=== PATIENT | female | born 1985 | race Caucasian/White ===

== ENCOUNTER 2017-03-20 10:15 | Emergency (ER) | payer BC ==
[~2017-03-20] VITALS: Ht 162.6 cm; Wt 104.8 kg
[2017-03-20] MEDS ORDERED: LIDOCAINE 2%, 20ML SQ ONE (11:00)
[2017-03-20] MEDS ORDERED: LIDOCAINE 1%, 20ML ONE (11:47)
[2017-03-20 13:21] VITALS: BP 117/74
== END 2017-03-20 13:23 | disposition home or self-care (01) ==
LOC: ED 13:17
DX: S06.0X1A Concussion with loss of consciousness of 30 minutes or less, initial encounter (principal); S01.01XA Laceration without foreign body of scalp, initial encounter; W19.XXXA Unspecified fall, initial encounter; Y93.89 Activity, other specified; Y99.9 Unspecified external cause status; Y92.009 Unspecified place in unspecified non-institutional (private) residence as the place of occurrence of the external cause
CPT/HCPCS: 12001; 70450; 72125; 93005

== ENCOUNTER 2017-03-27 18:36 | Emergency (ER) | payer BC ==
[~2017-03-27] VITALS: Ht 162.6 cm; Wt 107.0 kg
[2017-03-27 18:36] VITALS: BP 151/104
== END 2017-03-27 19:28 | disposition home or self-care (01) ==
LOC: ED 19:22
DX: Z48.02 Encounter for removal of sutures (principal); F90.9 Attention-deficit hyperactivity disorder, unspecified type
CPT/HCPCS: 99281

== ENCOUNTER 2017-05-25 20:56 | Emergency (ER) | payer BC ==
[~2017-05-25] VITALS: Ht 162.6 cm; Wt 108.0 kg
[2017-05-25] MEDS ORDERED: DIPHENHYDRAMINE 50 MG/ML, 1ML IVPush ONE (21:30)
[2017-05-25] MEDS ORDERED: SODIUM CHLORIDE 0.9% 1,000ML IVBOLUS ONE (21:30)
[2017-05-25] MEDS ORDERED: METOCLOPRAMIDE 5 MG/ML, 2ML IVPush ONE (21:30)
[2017-05-25] MEDS ORDERED: METOCLOPRAMIDE 5 MG/ML, 2ML ONE (21:43)
[2017-05-25] MEDS ORDERED: DIPHENHYDRAMINE 50 MG/ML, 1ML ONE (21:43)
[2017-05-25 22:41] LABS: ASPARTATE AMINO TRANSFERASE 7 U/L (15-37); BLOOD UREA NITROGEN 12 mg/dL (7-18)
[2017-05-26 00:29] LABS: PATH.CAST-FLAG NOT PRESENT; SPERM-FLAG NOT PRESENT; SRC-FLAG NOT PRESENT; XTAL-FLAG NOT PRESENT; YLC-FLAG NOT PRESENT
[2017-05-26] MEDS ORDERED: AMPH20CA7 PO (00:44)
[2017-05-26 01:19] VITALS: BP 123/74
== END 2017-05-26 01:29 | disposition home or self-care (01) ==
LOC: ED 22:18
DX: O23.11 Infections of bladder in pregnancy, first trimester (principal); O21.1 Hyperemesis gravidarum with metabolic disturbance; O26.891 Other specified pregnancy related conditions, first trimester; O21.9 Vomiting of pregnancy, unspecified; R11.0 Nausea; F90.9 Attention-deficit hyperactivity disorder, unspecified type; Z88.0 Allergy status to penicillin; Z90.49 Acquired absence of other specified parts of digestive tract; Z3A.01 Less than 8 weeks gestation of pregnancy
CPT/HCPCS: 36415; 76801; 80053; 81001; 83690; 84702; 85025; 87086; 96361; 96374; 96375; 99285; J1200; J2765; J7030

== ENCOUNTER 2017-06-05 12:56 | Emergency (ER) | payer BC ==
[~2017-06-05] VITALS: Ht 162.6 cm; Wt 109.3 kg
[~2017-06-05 12:56] MED LIST: AMPH20CA7 PO
[2017-06-05] MEDS ORDERED: ONDANSETRON 2MG/ML, 2ML IVPush ONE (14:00)
[2017-06-05] MEDS ORDERED: SODIUM CHLORIDE FLUSH 10ML SYR IVF ONE (14:00)
[2017-06-05] MEDS ORDERED: SODIUM CHLORIDE 0.9% 1,000ML IVBOLUS ONE (14:00)
[2017-06-05] MEDS ORDERED: ONDANSETRON 2MG/ML, 2ML ONE (14:04)
[2017-06-05 14:22] LABS: BLOOD UREA NITROGEN 12 mg/dL (7-18)
[2017-06-05 14:47] VITALS: BP 135/79
== END 2017-06-05 15:42 | disposition home or self-care (01) ==
LOC: ED 15:00
DX: O21.0 Mild hyperemesis gravidarum (principal); O26.891 Other specified pregnancy related conditions, first trimester; F90.9 Attention-deficit hyperactivity disorder, unspecified type; R11.0 Nausea; Z3A.09 9 weeks gestation of pregnancy
CPT/HCPCS: 36415; 80048; 82040; 84702; 85025; 96361; 96374; 99284; J2405; J7030

== ENCOUNTER 2017-07-08 16:16 | Emergency (ER) | payer BC ==
[~2017-07-08] VITALS: Ht 162.6 cm; Wt 114.1 kg
[2017-07-08] MEDS ORDERED: ONDANSETRON 2MG/ML, 2ML ONE (16:54)
[2017-07-08 16:56] LABS: HEMATOCRIT 39.9 % (34.6-47.8); HEMOGLOBIN 13.1 g/dL (11.7-16.4); WHITE BLOOD COUNT 10.2 x10^3/uL (3.4-10)
[2017-07-08] MEDS ORDERED: SODIUM CHLORIDE FLUSH 10ML SYR IVF ONE (17:00)
[2017-07-08] MEDS ORDERED: ONDANSETRON 2MG/ML, 2ML IVPush ONE (17:00)
[2017-07-08] MEDS ORDERED: DIPHENHYDRAMINE 50 MG/ML, 1ML IVPush ONE (17:00)
[2017-07-08] MEDS ORDERED: SODIUM CHLORIDE 0.9% 1,000ML IVBOLUS ONE (17:00)
[2017-07-08] MEDS ORDERED: DIPHENHYDRAMINE 50 MG/ML, 1ML ONE (17:04)
[2017-07-08 17:06] LABS: BLOOD UREA NITROGEN 10 mg/dL (7-18)
[2017-07-08 19:00] VITALS: BP 131/77
== END 2017-07-08 19:08 | disposition home or self-care (01) ==
LOC: ED 18:32
DX: O21.0 Mild hyperemesis gravidarum (principal); Z3A.13 13 weeks gestation of pregnancy; F90.9 Attention-deficit hyperactivity disorder, unspecified type
CPT/HCPCS: 36415; 80048; 81003; 82040; 85025; 96361; 96374; 96375; 99285; J1200; J2405; J7030

== ENCOUNTER 2017-08-12 20:01 | Emergency (ER) | payer BC ==
[~2017-08-12] VITALS: Ht 162.6 cm; Wt 118.7 kg
[2017-08-12 23:12] VITALS: BP 110/68
== END 2017-08-12 23:14 | disposition home or self-care (01) ==
LOC: ED 21:56
DX: O9A.212 Injury, poisoning and certain other consequences of external causes complicating pregnancy, second trimester (principal); S16.1XXA Strain of muscle, fascia and tendon at neck level, initial encounter; O30.002 Twin pregnancy, unspecified number of placenta and unspecified number of amniotic sacs, second trimester; Z3A.18 18 weeks gestation of pregnancy; X58.XXXA Exposure to other specified factors, initial encounter; Y93.89 Activity, other specified; Y92.89 Other specified places as the place of occurrence of the external cause; Y99.8 Other external cause status
CPT/HCPCS: 72020; 72050; 76805; 99284

== ENCOUNTER 2017-08-16 17:30 | Emergency (ER) | payer BC ==
[~2017-08-16] VITALS: Ht 162.6 cm; Wt 119.4 kg
[2017-08-16] MEDS ORDERED: ACETAMINOPHEN 325 MG TABLET ONE (18:11)
[2017-08-16 18:19] LABS: PATH.CAST-FLAG NOT PRESENT; SPERM-FLAG NOT PRESENT; SRC-FLAG NOT PRESENT; XTAL-FLAG NOT PRESENT; YLC-FLAG NOT PRESENT
[2017-08-16 18:27] LABS: HEMATOCRIT 37.5 % (34.6-47.8); HEMOGLOBIN 12.4 g/dL (11.7-16.4); WHITE BLOOD COUNT 9.9 x10^3/uL (3.4-10)
[2017-08-16] MEDS ORDERED: ACETAMINOPHEN 325 MG TABLET PO ONE (18:30)
[2017-08-16 18:39] LABS: ASPARTATE AMINO TRANSFERASE 11 U/L (15-37); BLOOD UREA NITROGEN 10 mg/dL (7-18)
[2017-08-16 21:05] VITALS: BP 138/74
== END 2017-08-16 21:08 | disposition home or self-care (01) ==
LOC: ED 17:42
DX: O20.0 Threatened abortion (principal); Z3A.18 18 weeks gestation of pregnancy
CPT/HCPCS: 36415; 76805; 80053; 81001; 84702; 85025; 86901; 87086; 99285

== ENCOUNTER 2017-09-29 22:54 | Outpatient (CLI) | payer BC ==
[~2017-09-29] VITALS: Ht 162.6 cm; Wt 125.9 kg
[~2017-09-29 22:54] MED LIST changes: +ONDA4TAB7 PO; +PREN-59 PO
[2017-09-29 23:40] VITALS: BP 133/74
== END 2017-09-29 23:55 | disposition home or self-care (01) ==
LOC: LDOP 22:54
PROVIDERS: ATTEND Obstetrics & Gynecology Maternal & Fetal Medicine
DX: O30.042 Twin pregnancy, dichorionic/diamniotic, second trimester (principal); O62.9 Abnormality of forces of labor, unspecified; Z3A.25 25 weeks gestation of pregnancy
CPT/HCPCS: 59025; 99211; G0463

== ENCOUNTER 2017-10-03 06:26 | Outpatient (CLI) | payer BC ==
[~2017-10-03] VITALS: Ht 162.6 cm; Wt 126.0 kg
== END 2017-10-03 09:20 | disposition home or self-care (01) ==
LOC: LDOP 06:26
PROVIDERS: ATTEND Obstetrics & Gynecology Maternal & Fetal Medicine
DX: O36.8120 Decreased fetal movements, second trimester, not applicable or unspecified (principal); O30.042 Twin pregnancy, dichorionic/diamniotic, second trimester; Z3A.25 25 weeks gestation of pregnancy
CPT/HCPCS: 59025; 76815; 99211; G0463

== ENCOUNTER 2017-10-05 08:37 | Outpatient (CLI) | payer BC ==
[~2017-10-05] VITALS: Ht 162.6 cm; Wt 125.9 kg
[2017-10-05 08:48] VITALS: BP 136/72
== END 2017-10-05 09:45 | disposition home or self-care (01) ==
LOC: LDOP 08:37
PROVIDERS: ATTEND Obstetrics & Gynecology Maternal & Fetal Medicine
DX: O24.410 Gestational diabetes mellitus in pregnancy, diet controlled (principal); O30.042 Twin pregnancy, dichorionic/diamniotic, second trimester; O99.212 Obesity complicating pregnancy, second trimester; Z3A.26 26 weeks gestation of pregnancy
CPT/HCPCS: 59025; 99201; G0463

== ENCOUNTER 2017-10-15 15:27 | Outpatient (CLI) | payer BC ==
[~2017-10-15] VITALS: Ht 162.6 cm; Wt 125.9 kg
[2017-10-15 16:00] VITALS: BP 120/56
[2017-10-15] MEDS ORDERED: INSU500V SC ×2 (16:50→16:54)
[2017-10-15] MEDS ORDERED: insulin nph SC ×2 (16:52→16:54)
== END 2017-10-15 17:08 | disposition home or self-care (01) ==
LOC: LDOP 15:27
PROVIDERS: ATTEND Obstetrics & Gynecology Maternal & Fetal Medicine
DX: O26.892 Other specified pregnancy related conditions, second trimester (principal); O30.042 Twin pregnancy, dichorionic/diamniotic, second trimester; O99.332 Smoking (tobacco) complicating pregnancy, second trimester; O99.212 Obesity complicating pregnancy, second trimester; F17.200 Nicotine dependence, unspecified, uncomplicated; R10.9 Unspecified abdominal pain; Z3A.27 27 weeks gestation of pregnancy
CPT/HCPCS: 59025; 99211; G0463

== ENCOUNTER 2017-11-09 20:19 | Outpatient (CLI) | payer BC ==
[~2017-11-09] VITALS: Ht 162.6 cm; Wt 190.0 kg
[~2017-11-09 20:19] MED LIST changes: +INSU500V SC; +insulin nph SC
[2017-11-09 20:46] VITALS: BP 124/58
[2017-11-09 21:09] LABS: MICROSCOPIC INDICATED
== END 2017-11-09 22:20 | disposition home or self-care (01) ==
LOC: LDOP 20:19
PROVIDERS: ATTEND Obstetrics & Gynecology Maternal & Fetal Medicine
DX: O36.8130 Decreased fetal movements, third trimester, not applicable or unspecified (principal); O62.9 Abnormality of forces of labor, unspecified; O30.003 Twin pregnancy, unspecified number of placenta and unspecified number of amniotic sacs, third trimester; Z3A.31 31 weeks gestation of pregnancy
CPT/HCPCS: 36415; 59025; 81001; 82731; 87086; 99211; G0463

== ENCOUNTER 2017-11-16 22:58 | Outpatient (CLI) | payer MEDICAID ==
[2017-11-17 00:27] LABS: MICROSCOPIC NOT IND
[2017-11-17 00:31] LABS: WET PREP WBCS MODERATE (FEW)
[2017-11-17 00:54] LABS: CLUE CELLS NONE SEEN (NONE SEEN)
== END 2017-11-17 01:15 | disposition home or self-care (01) ==
LOC: LDOP 22:58
PROVIDERS: ATTEND Obstetrics & Gynecology Maternal & Fetal Medicine
DX: O24.419 Gestational diabetes mellitus in pregnancy, unspecified control (principal); O26.893 Other specified pregnancy related conditions, third trimester; R10.9 Unspecified abdominal pain; O62.9 Abnormality of forces of labor, unspecified; Z3A.31 31 weeks gestation of pregnancy
CPT/HCPCS: 59025; 81003; 87210; 87808; 99211; G0463

== ENCOUNTER 2017-11-26 12:33 | Inpatient (IN) | payer MEDICAID ==
[~2017-11-26] VITALS: Ht 162.6 cm; Wt 138.7 kg
[2017-11-26 12:59] VITALS: BP 134/69
[2017-11-26 13:14] LABS: BASOPHILS # (AUTO) 0.03 x10^3/uL (0-0.1); BASOPHILS % (AUTO) 0 % (0-1); EOSINOPHILS # (AUTO) 0.07 x10^3/uL (0-0.4); EOSINOPHILS % (AUTO) 1 % (1-7); LYMPHOCYTES # (AUTO) 1.05 x10^3/uL (1-3.4); LYMPHOCYTES % (AUTO) 15 % (22-44); MD NO; MEAN CORPUSCULAR HEMOGLOBIN 27.7 pg (27.0-34.8); MEAN CORPUSCULAR HGB CONC 33.1 g/dL (32.4-35.8); MEAN CORPUSCULAR VOLUME 83.5 fL (80-100); MEAN PLATELET VOLUME 7.2 fL (7.4-10.4); MONOCYTES # (AUTO) 0.46 x10^3/uL (0.2-0.8); MONOCYTES % (AUTO) 7 % (2-9); NEUTROPHILS # (AUTO) 5.34 x10^3/uL (1.8-6.8); NEUTROPHILS % (AUTO) 77 % (42-75); PLATELET COUNT 279 x10^3/uL (130-400); RED BLOOD COUNT 4.16 x10^6/uL (3.82-5.3); RED CELL DISTRIBUTION WIDTH 14.9 % (9.6-15.2)
[2017-11-26 13:23] LABS: ALANINE AMINOTRANSFERASE 17 U/L (12-78); ALBUMIN 2.4 g/dL (3.4-5.0); ANION GAP 11 mmol/L (5-15); CALCIUM 8.7 mg/dL (8.5-10.1); CHLORIDE 106 mmol/L (98-107); CREATININE 0.55 mg/dL (0.55-1.02)
[2017-11-26 13:25] LABS: ALKALINE PHOSPHATASE 84 U/L (45-117); BILIRUBIN,TOTAL 0.4 mg/dL (0.2-1.0); TOTAL PROTEIN 6.4 g/dL (6.4-8.2)
[2017-11-26 13:33] LABS: MICROSCOPIC INDICATED
[2017-11-26 13:39] LABS: CREATININE,URINE RANDOM 97.9 mg/dL
[2017-11-26] MEDS: ACETAMINOPHEN 500 MG TABLET PO PRN (20:52)
[2017-11-26] MEDS ORDERED: CALCIUM CARBONATE 500 MG TAB.CHEW ONE (21:08)
[2017-11-26] MEDS: CALCIUM CARBONATE 500 MG TAB.CHEW PO PRN (21:10)
[2017-11-26] MEDS: INSULIN NPH HUMAN 100 UNIT/ML, 3ML VIAL SQ-INSULIN SCH (21:12)
[2017-11-27] MEDS: ACETAMINOPHEN 500 MG TABLET PO PRN ×2 (02:40→22:28)
[2017-11-27] MEDS ORDERED: OXYcodone IR 5MG TABLET PO PRN (04:00)
[2017-11-27] MEDS ORDERED: OXYcodone IR 5MG TABLET ONE ×2 (04:00→13:57)
[2017-11-27] MEDS ORDERED: CALCIUM CARBONATE 500 MG TAB.CHEW ONE (06:54)
[2017-11-27] MEDS: CALCIUM CARBONATE 500 MG TAB.CHEW PO PRN (06:56)
[2017-11-27] MEDS ORDERED: ONDANSETRON ODT 4 MG ONE (09:43)
[2017-11-27] MEDS ORDERED: ONDANSETRON 4 MG TABLET PO PRN (10:00)
[2017-11-27] MEDS ORDERED: ACETAMINOPHEN 500 MG TABLET ONE ×3 (13:50→22:26)
[2017-11-27] MEDS: OXYcodone IR 5MG TABLET PO PRN (13:59)
[2017-11-27] MEDS: INSULIN NPH HUMAN 100 UNIT/ML, 3ML VIAL SQ-INSULIN SCH (22:10)
[2017-11-28] MEDS ORDERED: OXYcodone IR 5MG TABLET ONE ×2 (02:43→02:45)
[2017-11-28] MEDS: OXYcodone IR 5MG TABLET PO PRN (02:46)
[2017-11-28] MEDS ORDERED: ONDANSETRON ODT 4 MG ONE (04:15)
[2017-11-28] MEDS: ONDANSETRON 4 MG TABLET PO PRN (04:17)
[2017-11-28] MEDS: INSULIN NPH HUMAN 100 UNIT/ML, 3ML VIAL SQ-INSULIN SCH ×2 (07:42→22:04)
[2017-11-28] MEDS: INSULIN REGULAR 100 UNITS/ML, 3ML VIAL SQ-INSULIN SCH ×3 (07:44→17:11)
[2017-11-28] MEDS ORDERED: DOCUSATE 100 MG CAPSULE ONE ×2 (08:49→21:02)
[2017-11-28] MEDS: DOCUSATE 100 MG CAPSULE PO SCH ×2 (08:51→21:04)
[2017-11-28] MEDS ORDERED: PRENATAL VIT/IRON/FA 1 EACH TABLET PO SCH (09:00)
[2017-11-28] MEDS: PRENATAL VIT/IRON/FA 1 EACH TABLET HOMEMEDPO SCH (09:00)
[2017-11-28] MEDS ORDERED: ACETAMINOPHEN 500 MG TABLET ONE ×2 (12:05→20:50)
[2017-11-28] MEDS: ACETAMINOPHEN 500 MG TABLET PO PRN ×2 (12:08→20:52)
[2017-11-28 19:25] VITALS: BP 141/73
[2017-11-28 22:09] VITALS: BP 146/75
[2017-11-28] MEDS ORDERED: DIPHENHYDRAMINE 25 MG CAPSULE ONE (23:58)
[2017-11-29] MEDS ORDERED: DIPHENHYDRAMINE 50 MG CAPSULE PO PRN
[2017-11-29 01:25] VITALS: BP 148/75
[2017-11-29] MEDS ORDERED: ACETAMINOPHEN 500 MG TABLET ONE ×3 (04:59→21:04)
[2017-11-29] MEDS: ACETAMINOPHEN 500 MG TABLET PO PRN ×3 (05:00→21:05)
[2017-11-29 06:00] VITALS: BP 151/76
[2017-11-29] MEDS ORDERED: PRENATAL VIT/IRON/FA 1 EACH TABLET ONE (07:14)
[2017-11-29] MEDS ORDERED: DOCUSATE 100 MG CAPSULE ONE (07:15)
[2017-11-29] MEDS: INSULIN NPH HUMAN 100 UNIT/ML, 3ML VIAL SQ-INSULIN SCH ×2 (07:41→21:00)
[2017-11-29] MEDS: INSULIN REGULAR 100 UNITS/ML, 3ML VIAL SQ-INSULIN SCH ×3 (07:42→17:05)
[2017-11-29] MEDS: DOCUSATE 100 MG CAPSULE PO SCH ×2 (07:45→20:58)
[2017-11-29] MEDS: PRENATAL VIT/IRON/FA 1 EACH TABLET HOMEMEDPO SCH (07:48)
[2017-11-29 07:49] VITALS: BP 136/83
[2017-11-29] MEDS ORDERED: BETAMETHASONE 6 MG/ML, 5ML IM ONE (18:26)
[2017-11-29] MEDS: BETAMETHASONE 6 MG/ML, 5ML IM SCH (18:40)
[2017-11-29] MEDS ORDERED: CALCIUM CARBONATE 500 MG TAB.CHEW ONE (22:48)
[2017-11-29] MEDS: CALCIUM CARBONATE 500 MG TAB.CHEW PO PRN (22:50)
[2017-11-30] MEDS ORDERED: ONDANSETRON 4 MG TABLET ONE (00:50)
[2017-11-30] MEDS ORDERED: ONDANSETRON ODT 4 MG ONE (00:51)
[2017-11-30] MEDS: ONDANSETRON 4 MG TABLET PO PRN (00:52)
[2017-11-30] MEDS ORDERED: FAMOTIDINE 20 MG TABLET ONE ×2 (01:00→21:52)
[2017-11-30] MEDS: FAMOTIDINE 20 MG TABLET PO PRN ×2 (01:03→21:54)
[2017-11-30 01:16] LABS: BASOPHILS % (AUTO) 0 % (0-1); EOSINOPHILS # (AUTO) 0.01 x10^3/uL (0-0.4); EOSINOPHILS % (AUTO) 0 % (1-7); LYMPHOCYTES # (AUTO) 0.65 x10^3/uL (1-3.4); LYMPHOCYTES % (AUTO) 9 % (22-44); MD NO; MEAN CORPUSCULAR HEMOGLOBIN 27.4 pg (27.0-34.8); MEAN CORPUSCULAR HGB CONC 32.6 g/dL (32.4-35.8); MEAN CORPUSCULAR VOLUME 83.9 fL (80-100); MEAN PLATELET VOLUME 7.5 fL (7.4-10.4); MONOCYTES # (AUTO) 0.12 x10^3/uL (0.2-0.8); MONOCYTES % (AUTO) 2 % (2-9); NEUTROPHILS # (AUTO) 6.86 x10^3/uL (1.8-6.8); NEUTROPHILS % (AUTO) 90 % (42-75); PLATELET COUNT 315 x10^3/uL (130-400); RED BLOOD COUNT 4.22 x10^6/uL (3.82-5.3); RED CELL DISTRIBUTION WIDTH 14.9 % (9.6-15.2)
[2017-11-30 01:21] LABS: ALANINE AMINOTRANSFERASE 17 U/L (12-78); ALBUMIN 2.4 g/dL (3.4-5.0); ANION GAP 9 mmol/L (5-15); CALCIUM 9.4 mg/dL (8.5-10.1); CHLORIDE 108 mmol/L (98-107)
[2017-11-30 01:22] LABS: BILIRUBIN, DIRECT < 0.1 mg/dL (0.1-0.2)
[2017-11-30 01:23] LABS: ALKALINE PHOSPHATASE 86 U/L (45-117); BILIRUBIN,TOTAL 0.3 mg/dL (0.2-1.0); CREATININE 0.66 mg/dL (0.55-1.02); TOTAL PROTEIN 6.6 g/dL (6.4-8.2)
[2017-11-30] MEDS ORDERED: INSULIN NPH HUMAN 100 UNIT/ML, 3ML VIAL SQ-INSULIN SCH ×2 (07:30→21:00)
[2017-11-30] MEDS ORDERED: INSULIN REGULAR 100 UNITS/ML, 3ML VIAL SQ-INSULIN SCH (07:30)
[2017-11-30] MEDS: DOCUSATE 100 MG CAPSULE PO SCH ×2 (09:00→13:04)
[2017-11-30] MEDS: INSULIN REGULAR 100 UNITS/ML, 3ML VIAL SQ-INSULIN SCH (11:55)
[2017-11-30] MEDS ORDERED: ACETAMINOPHEN 325 MG TABLET ONE (12:53)
[2017-11-30] MEDS ORDERED: DOCUSATE 100 MG CAPSULE ONE ×2 (12:54→20:52)
[2017-11-30] MEDS ORDERED: ACETAMINOPHEN 500 MG TABLET ONE ×2 (13:00→19:21)
[2017-11-30] MEDS: ACETAMINOPHEN 500 MG TABLET PO PRN ×2 (13:04→19:23)
[2017-11-30 17:43] LABS: BASOPHILS % (AUTO) 0 % (0-1); EOSINOPHILS % (AUTO) 0 % (1-7); LYMPHOCYTES % (AUTO) 10 % (22-44); MD NO; MEAN CORPUSCULAR HEMOGLOBIN 27.7 pg (27.0-34.8); MEAN CORPUSCULAR HGB CONC 33.1 g/dL (32.4-35.8); MEAN CORPUSCULAR VOLUME 83.8 fL (80-100); MEAN PLATELET VOLUME 7.2 fL (7.4-10.4); MONOCYTES # (AUTO) 0.63 x10^3/uL (0.2-0.8); MONOCYTES % (AUTO) 6 % (2-9); NEUTROPHILS # (AUTO) 8.65 x10^3/uL (1.8-6.8); NEUTROPHILS % (AUTO) 84 % (42-75); PLATELET COUNT 339 x10^3/uL (130-400); RED BLOOD COUNT 4.08 x10^6/uL (3.82-5.3); RED CELL DISTRIBUTION WIDTH 15.1 % (9.6-15.2)
[2017-11-30 17:45] LABS: ALANINE AMINOTRANSFERASE 13 U/L (12-78); ALBUMIN 2.4 g/dL (3.4-5.0); ANION GAP 12 mmol/L (5-15); BILIRUBIN, DIRECT < 0.1 mg/dL (0.1-0.2); CALCIUM 8.8 mg/dL (8.5-10.1); CHLORIDE 107 mmol/L (98-107)
[2017-11-30 17:47] LABS: ALKALINE PHOSPHATASE 80 U/L (45-117); BILIRUBIN,TOTAL 0.4 mg/dL (0.2-1.0); TOTAL PROTEIN 6.5 g/dL (6.4-8.2)
[2017-11-30] MEDS: BETAMETHASONE 6 MG/ML, 5ML IM SCH (18:31)
[2017-11-30] MEDS ORDERED: INSULIN REGULAR 100 UNITS/ML, 3ML VIAL SQ-INSULIN ONE (19:00)
[2017-11-30 19:16] LABS: MICROSCOPIC AUTO
[2017-11-30] MEDS ORDERED: INSULIN NPH HUMAN 100 UNIT/ML, 3ML VIAL SQ-INSULIN ONE (21:00)
[2017-12-01] VITALS (7 sets, daily range): BP systolic 116–146; BP diastolic 56–92
[2017-12-01] MEDS ORDERED: METOCLOPRAMIDE 5 MG/ML, 2ML ONE ×2 (01:24→01:42)
[2017-12-01] MEDS ORDERED: SODIUM CITRATE/CITRIC ACID 30 ML UDC ONE ×2 (01:24→01:42)
[2017-12-01] MEDS ORDERED: NEWBORN KIT ONE (01:28)
[2017-12-01] MEDS ORDERED: KETOROLAC 30 MG/1 ML ONE ×3 (01:42→07:48)
[2017-12-01] MEDS ORDERED: OXYTOCIN 10 UNITS/ML, 1ML ONE ×2 (01:42→01:44)
[2017-12-01] MEDS ORDERED: CEFAZOLIN 1,000 MG ONE ×2 (01:42→01:44)
[2017-12-01] MEDS ORDERED: DEXAMETHASONE 4 MG/ML, 1ML ONE ×2 (01:42→01:44)
[2017-12-01] MEDS ORDERED: ONDANSETRON 2MG/ML, 2ML ONE ×2 (01:42→01:44)
[2017-12-01] MEDS ORDERED: EPHEDRINE 50 MG/ML, 1ML ONE (01:44)
[2017-12-01] MEDS ORDERED: PHENYLEPHRINE 10 MG/ML ONE (01:44)
[2017-12-01 01:45] LABS: O2 FLOW ROOM AIR L/min
[2017-12-01] MEDS: LACTATED RINGERS 1,000 ML IV SCH ×5 (01:45→21:45)
[2017-12-01] MEDS ORDERED: MISOPROSTOL 200 MCG TABLET PR PRN (02:00)
[2017-12-01] MEDS ORDERED: ACETAMINOPHEN 325 MG TABLET PO PRN ×2 (02:00)
[2017-12-01] MEDS ORDERED: ONDANSETRON 2MG/ML, 2ML IV PRN (02:00)
[2017-12-01] MEDS ORDERED: OXYcodone/APAP 5/325MG TABLET PO PRN (02:00)
[2017-12-01] MEDS ORDERED: CALCIUM CARBONATE 500 MG TAB.CHEW PO PRN (02:00)
[2017-12-01] MEDS ORDERED: morphine SULFATE 10 MG/ML, 1ML IVPush PRN ×2 (02:00)
[2017-12-01] MEDS ORDERED: MEASLES,MUMPS&RUBELLA VACC/PF 0.5 ML SQ-VACC PRN (02:00)
[2017-12-01] MEDS ORDERED: SIMETHICONE 80 MG CHEW TAB PO PRN (02:00)
[2017-12-01] MEDS ORDERED: DIPH,PERTUSS(ACELL),TET VAC/PF NC IM-VACC PRN (02:00)
[2017-12-01] MEDS ORDERED: OXYTOCIN 30U/ 0.9% NaCL 500ML 500 ML ONE (02:43)
[2017-12-01] MEDS ORDERED: FENTANYL PF 100 MCG/2ML ONE (02:50)
[2017-12-01] MEDS ORDERED: MAGNESIUM SULF. PMX 20GM/500ML 500 ML IV ONE (02:56)
[2017-12-01] MEDS ORDERED: LABETALOL 5MG/ML, 20ML IV PRN (03:30)
[2017-12-01] MEDS ORDERED: hydrALAzine 20 MG/ML, 1ML IV PRN (03:30)
[2017-12-01] MEDS ORDERED: EPHEDRINE 50 MG/ML, 1ML IVPush PRN (03:30)
[2017-12-01] MEDS ORDERED: MEPERIDINE/PF 25MG/0.5ML IVPush PRN (03:30)
[2017-12-01] MEDS ORDERED: ALBUTEROL SULFATE 2.5 MG/3 ML NPPB PRN (03:30)
[2017-12-01] MEDS ORDERED: PROMETHAZINE 25 MG/ML, 1ML IV PRN (03:30)
[2017-12-01] MEDS ORDERED: HYDROmorphone 1 MG/ML, 1ML IV PRN (03:30)
[2017-12-01] MEDS ORDERED: ONDANSETRON 2MG/ML, 2ML IVPush PRN (03:30)
[2017-12-01] MEDS ORDERED: FENTANYL PF 100 MCG/2ML IV PRN (03:30)
[2017-12-01] MEDS ORDERED: HYDROcodone/APAP 7.5-325MG/15ML UDC PO PRN (03:30)
[2017-12-01] MEDS ORDERED: OXYcodone 5 MG/5 ML ORAL.SOL UDC PO PRN (03:30)
[2017-12-01] MEDS ORDERED: MIDAZOLAM 1 MG/ML, 2ML IV PRN (03:30)
[2017-12-01] MEDS: OXYTOCIN 30U/ 0.9% NaCL 500ML 500 ML IV SCH ×3 (04:18→21:45)
[2017-12-01] MEDS ORDERED: METOCLOPRAMIDE 5 MG/ML, 2ML IVPush ONE (05:30)
[2017-12-01] MEDS ORDERED: SODIUM CITRATE/CITRIC ACID 30 ML UDC PO ONE (05:30)
[2017-12-01] MEDS ORDERED: INSULIN NPH HUMAN 100 UNIT/ML, 3ML VIAL SQ-INSULIN SCH (07:30)
[2017-12-01] MEDS ORDERED: HYDROcodone/APAP 7.5-325MG/15ML UDC ONE (07:34)
[2017-12-01] MEDS ORDERED: OXYcodone/APAP 10/325MG TABLET ONE (07:42)
[2017-12-01] MEDS: OXYcodone/APAP 5/325MG TABLET PO PRN ×3 (07:50→21:12)
[2017-12-01] MEDS: KETOROLAC 30 MG/1 ML IV SCH ×2 (07:51→14:29)
[2017-12-01 10:56] LABS: MEAN CORPUSCULAR HEMOGLOBIN 27.9 pg (27.0-34.8); MEAN CORPUSCULAR HGB CONC 33.1 g/dL (32.4-35.8); MEAN PLATELET VOLUME 7.2 fL (7.4-10.4); PLATELET COUNT 254 x10^3/uL (130-400); RED BLOOD COUNT 3.74 x10^6/uL (3.82-5.3); RED CELL DISTRIBUTION WIDTH 14.8 % (9.6-15.2)
[2017-12-01 11:19] LABS: BASOPHILS # (AUTO) 0.01 x10^3/uL (0-0.1); BASOPHILS % (AUTO) 0 % (0-1); EOSINOPHILS % (AUTO) 0 % (1-7); LYMPHOCYTES # (AUTO) 0.89 x10^3/uL (1-3.4); LYMPHOCYTES % (AUTO) 6 % (22-44); MD SCAN; MONOCYTES # (AUTO) 0.45 x10^3/uL (0.2-0.8); MONOCYTES % (AUTO) 3 % (2-9); NEUTROPHILS # (AUTO) 13.35 x10^3/uL (1.8-6.8); NEUTROPHILS % (AUTO) 91 % (42-75)
[2017-12-01] MEDS: PRENATAL VIT/IRON/FA 1 EACH TABLET PO SCH (11:25)
[2017-12-01] MEDS: MEPERIDINE/PF 50 MG/ML IM PRN ×2 (15:33→19:44)
[2017-12-01] MEDS ORDERED: INSULIN REGULAR 100 UNITS/ML, 3ML VIAL SQ-INSULIN SCH (16:30)
[2017-12-01] MEDS: DOCUSATE 100 MG CAPSULE PO PRN (21:12)
[2017-12-02] VITALS (8 sets, daily range): BP systolic 124–150; BP diastolic 66–88
[2017-12-02] MEDS: OXYcodone/APAP 5/325MG TABLET PO PRN ×4 (01:14→19:13)
[2017-12-02] MEDS: IBUPROFEN 600 MG TABLET PO PRN ×4 (02:33→22:10)
[2017-12-02] MEDS ORDERED: POLYETHYLENE GLYCOL 17 GM PACKET PO PRN (06:30)
[2017-12-02] MEDS: OXYTOCIN 30U/ 0.9% NaCL 500ML 500 ML IV SCH ×2 (07:45→17:45)
[2017-12-02] MEDS: LACTATED RINGERS 1,000 ML IV SCH ×2 (07:45→17:45)
[2017-12-02] MEDS: DOCUSATE 100 MG CAPSULE PO PRN ×2 (08:15→19:13)
[2017-12-02] MEDS: PRENATAL VIT/IRON/FA 1 EACH TABLET PO SCH (09:00)
[2017-12-02] MEDS: GUAIFENESIN/DM 200-20MG, 10ML UDC PO PRN (23:22)
[2017-12-03] VITALS: BP 125/78
[2017-12-03] MEDS: OXYcodone/APAP 5/325MG TABLET PO PRN ×5 (01:42→21:23)
[2017-12-03] MEDS: OXYTOCIN 30U/ 0.9% NaCL 500ML 500 ML IV SCH ×2 (03:45→22:25)
[2017-12-03] MEDS: LACTATED RINGERS 1,000 ML IV SCH ×2 (03:45→22:25)
[2017-12-03 04:05] VITALS: BP 112/69
[2017-12-03] MEDS: IBUPROFEN 600 MG TABLET PO PRN ×3 (04:05→17:29)
[2017-12-03 07:20] VITALS: BP 121/68
[2017-12-03] MEDS: PRENATAL VIT/IRON/FA 1 EACH TABLET PO SCH (09:00)
[2017-12-03] MEDS: DOCUSATE 100 MG CAPSULE PO PRN ×2 (10:27→21:23)
[2017-12-03 12:00] VITALS: BP 128/80
[2017-12-03 17:19] VITALS: BP 126/74
[2017-12-03 19:35] VITALS: BP 139/94
[2017-12-03] MEDS ORDERED: OXYcodone IR 5MG TABLET PO PRN ×2 (22:30)
[2017-12-03] MEDS: GUAIFENESIN/DM 200-20MG, 10ML UDC PO PRN (22:57)
[2017-12-04] MEDS: IBUPROFEN 600 MG TABLET PO PRN ×3 (00:08→19:30)
[2017-12-04 00:11] VITALS: BP 139/86
[2017-12-04 04:45] VITALS: BP 148/88
[2017-12-04] MEDS: OXYcodone/APAP 5/325MG TABLET PO PRN ×2 (07:07→19:30)
[2017-12-04] MEDS: PRENATAL VIT/IRON/FA 1 EACH TABLET PO SCH ×2 (07:07→07:08)
[2017-12-04] MEDS: DOCUSATE 100 MG CAPSULE PO PRN ×2 (07:08→19:30)
[2017-12-04 07:10] VITALS: BP 148/90
[2017-12-04] MEDS: OXYTOCIN 30U/ 0.9% NaCL 500ML 500 ML IV SCH ×2 (09:45→19:45)
[2017-12-04] MEDS: LACTATED RINGERS 1,000 ML IV SCH ×2 (09:45→19:45)
[2017-12-04 12:00] VITALS: BP 142/91
[2017-12-04 16:02] VITALS: BP 134/88
[2017-12-04 19:50] VITALS: BP_SYST 135; BP_SYST 165; BP_DIAS 75; BP_DIAS 87
[2017-12-05] MEDS: IBUPROFEN 600 MG TABLET PO PRN ×3 (02:37→18:28)
[2017-12-05] MEDS: OXYcodone/APAP 5/325MG TABLET PO PRN ×4 (02:37→18:29)
[2017-12-05] MEDS: OXYTOCIN 30U/ 0.9% NaCL 500ML 500 ML IV SCH (05:45)
[2017-12-05] MEDS: LACTATED RINGERS 1,000 ML IV SCH (05:45)
[2017-12-05 07:30] VITALS: BP 141/94
[2017-12-05] MEDS: DOCUSATE 100 MG CAPSULE PO PRN (07:38)
[2017-12-05] MEDS: PRENATAL VIT/IRON/FA 1 EACH TABLET PO SCH (07:38)
[2017-12-05 12:49] VITALS: BP 136/91
[2017-12-05] MEDS ORDERED: OXYC-302 PO (16:58)
[2017-12-05] MEDS ORDERED: IBUP-1222 PO (16:58)
== END 2017-12-05 19:00 | disposition home or self-care (01) | DRG 765 ==
LOC: LDOP 12:33 → LDIP 13:28 → OBSVTOIN 11-27 18:22 → NSY 12-01 04:55 → 2NW 12-01 04:55 → 2NE 12-01 04:55 → 2NW 12-01 09:51
PROVIDERS: ADMIT Obstetrics & Gynecology Maternal & Fetal Medicine; ATTEND Obstetrics & Gynecology Maternal & Fetal Medicine
PROC: 10D00Z1 Extraction of Products of Conception, Low, Open Approach (ICD-10-PCS; principal; 2017-12-01)
DX: O30.043 Twin pregnancy, dichorionic/diamniotic, third trimester (principal); O99.354 Diseases of the nervous system complicating childbirth; Z37.2 Twins, both liveborn; O24.424 Gestational diabetes mellitus in childbirth, insulin controlled; O13.4 Gestational [pregnancy-induced] hypertension without significant proteinuria, complicating childbirth; O99.344 Other mental disorders complicating childbirth; O76 Abnormality in fetal heart rate and rhythm complicating labor and delivery; O32.8XX2 Maternal care for other malpresentation of fetus, fetus 2; O14.94 Unspecified pre-eclampsia, complicating childbirth; G43.909 Migraine, unspecified, not intractable, without status migrainosus; F32.9 Major depressive disorder, single episode, unspecified; Z90.49 Acquired absence of other specified parts of digestive tract; Z83.3 Family history of diabetes mellitus; Z3A.33 33 weeks gestation of pregnancy; Z88.0 Allergy status to penicillin; Z88.6 Allergy status to analgesic agent
CPT/HCPCS: 36415; 36600; 76819; 80053; 81001; 81050; 82248; 82570; 82803; 82962; 83615; 84156; 84550; 85025; 87086; 88307; G0378; J0690; J0702; J1100; J1815; J1885; J2175; J2405; J3010; Q0162; C1765; J2370; J2590; J2765; J7120

== ENCOUNTER 2018-05-12 19:02 | Emergency (ER) | payer MEDICAID ==
[~2018-05-12] VITALS: Ht 162.6 cm; Wt 117.2 kg
[~2018-05-12 19:02] MED LIST changes: +IBUP-1222 PO; +OXYC-302 PO
[2018-05-12] MEDS ORDERED: ONDANSETRON 2MG/ML, 2ML ONE (19:50)
[2018-05-12] MEDS ORDERED: SODIUM CHLORIDE 0.9% 1,000ML IVBOLUS ONE (20:00)
[2018-05-12] MEDS ORDERED: ONDANSETRON 2MG/ML, 2ML IVPush ONE (20:00)
[2018-05-12 20:02] LABS: BASOPHILS # (AUTO) 0.01 x10^3/uL (0-0.1); BASOPHILS % (AUTO) 0 % (0-1); EOSINOPHILS # (AUTO) 0.08 x10^3/uL (0-0.4); EOSINOPHILS % (AUTO) 1 % (1-7); LYMPHOCYTES # (AUTO) 1.01 x10^3/uL (1-3.4); LYMPHOCYTES % (AUTO) 8 % (22-44); MD NO; MEAN CORPUSCULAR HEMOGLOBIN 27.5 pg (27.0-34.8); MEAN CORPUSCULAR HGB CONC 33.3 g/dL (32.4-35.8); MEAN CORPUSCULAR VOLUME 82.7 fL (80-100); MEAN PLATELET VOLUME 7.6 fL (7.4-10.4); MONOCYTES # (AUTO) 0.38 x10^3/uL (0.2-0.8); MONOCYTES % (AUTO) 3 % (2-9); NEUTROPHILS # (AUTO) 11.16 x10^3/uL (1.8-6.8); NEUTROPHILS % (AUTO) 88 % (42-75); PLATELET COUNT 348 x10^3/uL (130-400); RED BLOOD COUNT 5.79 x10^6/uL (3.82-5.3); RED CELL DISTRIBUTION WIDTH 14.6 % (9.6-15.2)
[2018-05-12 20:07] LABS: MICROSCOPIC INDICATED
[2018-05-12 20:11] LABS: ALBUMIN 4.1 g/dL (3.4-5.0); ANION GAP 10 mmol/L (5-15); CALCIUM 9.3 mg/dL (8.5-10.1); CHLORIDE 111 mmol/L (98-107)
[2018-05-12 20:14] LABS: ALANINE AMINOTRANSFERASE 32 U/L (12-78); ALKALINE PHOSPHATASE 43 U/L (45-117); BILIRUBIN,TOTAL 1.2 mg/dL (0.2-1.0); CREATININE 0.85 mg/dL (0.55-1.02); TOTAL PROTEIN 8.1 g/dL (6.4-8.2)
[2018-05-12] MEDS ORDERED: KETOROLAC 30 MG/1 ML ONE (20:20)
[2018-05-12 20:26] LABS: CULTURE INDICATED? NO
[2018-05-12] MEDS ORDERED: KETOROLAC 30 MG/1 ML IVPush ONE (20:30)
[2018-05-12] MEDS ORDERED: PROMETHAZINE 25 MG/ML, 1ML ONE (21:03)
[2018-05-12] MEDS ORDERED: PROMETHAZINE 25 MG/ML, 1ML IM ONE (21:30)
[2018-05-12] MEDS ORDERED: METOCLOPRAMIDE 5 MG/ML, 2ML ONE (21:39)
[2018-05-12] MEDS ORDERED: MORPHINE SULFATE 4 MG/ML, 1ML ONE (21:39)
[2018-05-12] MEDS ORDERED: METOCLOPRAMIDE 5 MG/ML, 2ML IVPush ONE (22:00)
[2018-05-12] MEDS ORDERED: MORPHINE SULFATE 4 MG/ML, 1ML IVPush PRN (22:00)
[2018-05-12 22:15] VITALS: BP 145/95
== END 2018-05-12 22:32 | disposition home or self-care (01) ==
LOC: ED 19:41
DX: A09 Infectious gastroenteritis and colitis, unspecified (principal); E11.9 Type 2 diabetes mellitus without complications; Z88.0 Allergy status to penicillin
CPT/HCPCS: 36415; 80053; 81001; 83690; 84703; 85025; 93005; 96361; 96372; 96374; 96375; 99285; J1885; J2405; J2550; J2765; J7030

== ENCOUNTER 2018-08-12 18:44 | Emergency (ER) | payer MEDICAID ==
[~2018-08-12] VITALS: Ht 162.6 cm; Wt 111.0 kg
[2018-08-12 18:51] VITALS: BP 157/108
== END 2018-08-12 19:31 | disposition home or self-care (01) ==
LOC: ED 19:00
DX: S60.221A Contusion of right hand, initial encounter (principal); Z87.891 Personal history of nicotine dependence; Y04.0XXA Assault by unarmed brawl or fight, initial encounter; Y93.89 Activity, other specified; Y92.098 Other place in other non-institutional residence as the place of occurrence of the external cause; Y99.8 Other external cause status
CPT/HCPCS: 99284